=== PATIENT | male | born 1960 | race Two or more races ===

== ENCOUNTER 2023-06-23 14:19 | Emergency (ER) | payer OTHER, SELFPAY ==
[2023-06-23 14:28] VITALS: BP 158/94; PULSE 88; TEMP 36.6; O2SAT 97; BMI 33.5
--- NOTE | 2023-06-23 14:40 | PC.NURSE ---
Pain to mid back radiating to left side. Denies injury. Has history of chronic back pain.
--- NOTE | 2023-06-23 14:59 | CT_ITS ---
The [address] [address] Patient Name: YARELIS BEY MRN: [id number] date: 1960 Sex: M Assigned Patient Location: ER Current Patient Location: ER Accession/Order Number: [id number] Exam Date: 06/23/2023 15:57 Report Date: 06/23/2023 16:56 At the request of: JAYLON MCCURDY Procedure: CT angio chest CT angio chest HISTORY: chest pain/ back pain. r/o dissection TECHNIQUE: CTA chest with intravenous contrast attention to the thoracic aorta. Sagittal, coronal and slab 3D MIP coronal reconstructed images were also created for further evaluation and interpretation. One of the following dose optimization techniques was utilized in the performance of this exam: Automated exposure control; adjustment of the mA and/or kV according to the patient's size; or use of an iterative reconstruction technique. Specific details can be referenced in the facility's radiology CT exam operational policy. COMPARISON: None. FINDINGS: Heart/vessels: No evidence of aortic dissection or pulmonary. Coronary artery calcifications. Mediastinum: Negative. Lymph nodes: Negative. Lungs/pleura: Bibasilar subsegmental atelectasis. Visualized upper abdomen: Negative. Bones/soft tissues: Negative. CT/CT angio chest IMPRESSION: 1. No evidence of aortic dissection. 2. Bibasilar atelectasis. Electronically authenticated by: LONDON HANKS Date: 06/23/2023 16:56
--- NOTE | 2023-06-23 14:59 | ECG_ITS ---
[facility] Test Date: 2023-06-23 Pat Name: YARELIS BEY Department: Room: - Gender: Male Supplemental Manager: : 1960 Requested By: Order Number: [id number] Reading MD: DAVE EDDY Measurements Intervals [place] Rate: 90 P: 48 FL: 148 QRS: -11 QRSD: 88 T: 48 QT: 362 QTc: 410 Interpretive Statements 1100 Sinus rhythm 1470 with occasional supraventricular premature complexes 4068 Nonspecific [place] abnormality 9140 abnormal rhythm ECG No previous ECG available for comparison Electronically Signed On 06-24-2023 10:54:14 EDT by DAVE EDDY
[2023-06-23] MEDS: ONDANSETRON PF 4 MG/2 ML VIAL IV (15:23)
[2023-06-23] MEDS: KETOROLAC TROMETHAMINE 30 MG/ML VIAL 15 MG IVP (15:25)
[2023-06-23] MEDS: MORPHINE SULFATE 4 MG/ML VIAL IV (15:25)
[2023-06-23 15:28] LABS: Basophils Percent Auto 0.2 % (0.2-2.0); Hematocrit 47.3 % (42.0-54.0); Hemoglobin 16.1 g/dL (14.0-18.0); Immature Granulocytes Abs Auto 0.05 10^3/uL (0.00-0.03); Immature Granulocytes Pct Auto 0.3 % (0.0-0.5); Lymphocytes Absolute Auto 1.3 10^3/uL (1.2-3.8); Lymphocytes Percent Auto 7.9 % (20.5-60.0); Mean Corpuscular Volume 96.9 fL (80.0-94.0); Mean Platelet Volume 11.6 fL (9.5-13.5); Monocytes Absolute Auto 1.4 10^3/uL (0.3-0.8); Monocytes Percent Auto 8.5 % (1.7-12.0); Neutrophils Absolute Auto 13.8 10^3/uL (1.4-6.5); Neutrophils Percent Auto 83.1 % (43.0-75.0); Platelet Count 176 10^3/uL (150-450); Red Blood Count 4.88 10^6/uL (4.70-6.10); Red Cell Distribution Width 11.6 % (11.0-15.0); White Blood Count 16.5 10^3/uL (4.0-11.0)
[2023-06-23 15:31] VITALS: PULSE 86; O2SAT 95
[2023-06-23 15:42] LABS: INR 1.16; Prothrombin Time 12.1 sec (9.0-11.6)
[2023-06-23 15:48] LABS: Alanine Aminotransferase 38 U/L (16-63); Albumin Globulin Ratio 0.7; Albumin Level 3.5 g/dL (3.4-5.0); Alkaline Phosphatase 101 U/L (46-116); Anion Gap 14.3; Aspartate Amino Transferase 52 U/L (15-37); BUN Creatinine Ratio 11.5; Bilirubin Total 2.1 mg/dL (0.2-1.0); Calcium 9.3 mg/dL (8.5-10.1); Carbon Dioxide 28.5 mmol/L (21.0-32.0); Chloride 97 mmol/L (98-107); Estimated GFR (African America >60 (>=60); Estimated GFR (Non-African Ame >60 (>=60); Globulin 4.7 g/dL; Glucose 157 mg/dL (74-106); Potassium 3.8 mmol/L (3.5-5.1); Sodium 136 mmol/L (136-145); Total Protein 8.2 g/dL (6.4-8.2)
[2023-06-23 15:50] LABS: Troponin I High Sensitivity 10.1 pg/mL (4.0-76.1)
[2023-06-23 16:20] LABS: Bilirubin Urine MODERATE (NEGATIVE); Blood Urine TRACE-I (NEGATIVE); Clarity Urine CLEAR (CLEAR); Color Urine DK. ORANGE (YELLOW); Glucose Urine UA NEGATIVE (NEGATIVE); Ketones Urine TRACE mg/dL (NEGATIVE); Leukocyte Esterase Urine NEGATIVE (NEGATIVE); Nitrite Urine POSITIVE (NEGATIVE); Protein Urine 100 mg/dL (NEG/TRACE); Specific Gravity Urine 1.015 (1.005-1.025); pH Urine 6.5 (5.0-9.0)
[2023-06-23 16:21] LABS: Urine Microscopic Indicated YES
[2023-06-23 16:30] LABS: Bacteria Urine MODERATE #/HPF (NONE SEEN); Cast Seen? NONE SEEN #/LPF (NONE SEEN); Crystals Seen? None Seen #/HPF (None Seen); Mucus Urine SMALL (NONE SEEN); Squamous Epithelial Cell Urine NONE SEEN #/LPF (NONE/RARE); Urine Culture Indicated YES; WBC Urine 0-2 #/HPF (NONE SEEN)
--- NOTE | 2023-06-23 17:21 | ED_ITS ---
HPI HPI - General Adult General Chief complaint: Back Pain/Injury Stated complaint: BACK AND FLANK PAIN Time Seen by Provider: 06/23/23 14:40 Source: patient Mode of arrival: walk-in Limitations: no limitations History of Present Illness HPI narrative: 63-year-old male to the emergency department with chief complaint of back pain. Patient reports that he has a pain on his left side that is tearing Him apart . He reports it hurts around to the front on the left. He reports that it hurts down his back. He points to his left flank. He denies any fever, sweats, chills. Denies any hematuria, dysuria, urgency, frequency. He reports that he took his methadone today and it only mildly helped his pain. He reports that he has chronic back pain. He denies any numbness, weakness, tingling. He denies any difficulty walking. He denies any bladder incontinence or retention. Related Data Home Medications ?Medication ?Instructions ?Recorded ?Confirmed lisinopril 20 mg tablet 20 mg PO BID 06/23/23 06/23/23 methadone 10 mg tablet 10 mg PO QID PRN pain 06/23/23 06/23/23 tizanidine 4 mg tablet (Zanaflex) 4 mg PO TID PRN muscle spasticity 06/23/23 06/23/23 Previous Rx's ?Medication ?Instructions ?Recorded cephalexin 500 mg capsule 500 mg PO Q6H 7 days #28 caps 06/23/23 ondansetron 4 mg disintegrating 4 mg PO Q8H PRN nausea and 06/23/23 tablet vomiting 4 days #16 tabs Allergies Allergy/AdvReac Type Severity Reaction Status Date / Time gabapentin Allergy Anaphylaxis Verified 06/23/23 14:28 Opioid HPI Opioid Management Most Recent Opioid Data: Last Pain Scale 8 06/23/23 15:25 Last MAR Pain Assessment 06/23/23 15:25 Review of Systems ROS Status of ROS 10 or more systems reviewed and unremark able except as noted in history and below Exam Narrative Exam Narrative: VITALS: I have reviewed the triage vital signs. GENERAL: Uncomfortable adult male holding back and chest NEURO: Alert and oriented. Moves all extremities. Face is symmetric and expressive. EYES: PERRL. No scleral icterus or conjunctival injection. No discharge. HENT: Normocephalic, atraumatic. Hearing is grossly intact. Nares grossly patent and without discharge. Mucous membranes moist. NECK: No JVD. Patient moves neck without restriction. CARDIO: Rhythm regular. Normal rate. No murmur, rub, or gallop. Pulses equal bilaterally in the upper and lower extremity. No lower extremity edema. PULM: Lungs clear to auscultation in all guillory. No wheezes, rales, or rhonchi. No conversational dyspnea. No splinting, stridor, or accessory muscle use. GI/: Abdomen is soft and non-tender. Normoactive bowel sounds. EXTREMITIES: Symmetric muscle bulk. No joint swelling. No clubbing, cyanosis, or deformity. SKIN: Warm and dry. Normal turgor. No rash or lesions appreciated. PSYCH: Mood, affect, and interaction is appropriate to the setting. Constitutional Vital Signs, click to edit/add: Last Vital Signs Temp 97.9 F 06/23/23 14:28 Pulse 86 06/23/23 15:31 Resp 20 06/23/23 15:31 BP 158/94 H 06/23/23 14:28 Pulse Ox 95 06/23/23 15:31 O2 Del Method Room Air 06/23/23 15:31 Course Vital Signs Vital signs: Vital Signs Temperature 97.9 F 06/23/23 14:28 Pulse Rate 88 06/23/23 14:28 Respiratory Rate 20 06/23/23 14:28 Blood Pressure 158/94 H 06/23/23 14:28 Pulse Oximetry 97 06/23/23 14:28 Oxygen Delivery Method Room Air 06/23/23 14:28 Temperature 97.9 F 06/23/23 14:28 Pulse Rate 86 06/23/23 15:31 Respiratory Rate 20 06/23/23 15:31 Blood Pressure 158/94 H 06/23/23 14:28 Pulse Oximetry 95 06/23/23 15:31 Oxygen Delivery Method Room Air 06/23/23 15:31 Medical Decision Making MDM Narrative Medical decision making narrative: 63-year-old male to the emergency department with chief complaint of Tearing back pain. Vital stable, the patient is afebrile. Patient is a chronic back pain patient on methadone. He does appear to be in some significant discomfort. CT is ordered to rule out dissection. Pain medication ordered for symptoms. Basic labs and urine. Patient agrees with this plan. CTA without acute findings. Laboratory reviewed and unremarkable. Urinalysis is consistent with acute urinary tract infection. Patient reexamined. He reports his pain is controlled. He is up ambulating about with no discomfort. Keflex is prescribed. He may use his home. Pain medication regimen. Zofran for nausea or vomiting. Return options were discussed. All questions were answered. Patient was discharged home. Medical Records Medical records reviewed: Yes I reviewed the patient's medical records Lab Data Lab results reviewed: Yes I reviewed the patient's lab results Labs: Lab Results 06/23/23 06/23/23 Range/Units 15:10 16:06 WBC 16.5 H (4.0-11.0) 10^3/uL RBC 4.88 (4.70-6.10) 10^6/uL Hgb 16.1 (14.0-18.0) g/dL Hct 47.3 (42.0-54.0) % MCV 96.9 H (80.0-94.0) fL MCH 33.0 (25.9-34.0) pg MCHC 34.0 (29.9-35.2) g/dL RDW 11.6 (11.0-15.0) % Plt Count 176 (150-450) 10^3/uL MPV 11.6 (9.5-13.5) fL Neut % (Auto) 83.1 H (43.0-75.0) % Lymph % (Auto) 7.9 L (20.5-60.0) % [place] % (Auto) 8.5 (1.7-12.0) % Eos % (Auto) 0.0 L (0.9-7.0) % Baso % (Auto) 0.2 (0.2-2.0) % Neut # (Auto) 13.8 H (1.4-6.5) 10^3/uL Lymph # (Auto) 1.3 (1.2-3.8) 10^3/uL [place] # (Auto) 1.4 H (0.3-0.8) 10^3/uL Eos # (Auto) 0.0 (0.0-0.7) 10^3/uL Baso # (Auto) 0.0 (0.0-0.1) 10^3/uL Abs Immat Gran (auto) 0.05 H (0.00-0.03) 10^3/uL Imm/Tot Granulo (auto) 0.3 (0.0-0.5) % PT 12.1 H (9.0-11.6) sec INR 1.16 Sodium 136 (136-145) mmol/L Potassium 3.8 (3.5-5.1) mmol/L Chloride 97 L (98-107) mmol/L Carbon Dioxide 28.5 (21.0-32.0) mmol/L Anion Gap 14.3 BUN 10.0 (7.0-18.0) mg/dL Creatinine 0.87 (0.70-1.30) mg/dL Est GFR ( Amer) >60 (>=60) Est GFR (Non-Af Amer) >60 (>=60) BUN/Creatinine Ratio 11.5 Glucose 157 H (74-106) mg/dL Calcium 9.3 (8.5-10.1) mg/dL Total Bilirubin 2.1 H (0.2-1.0) mg/dL AST 52 H (15-37) U/L ALT 38 (16-63) U/L Alkaline Phosphatase 101 (46-116) U/L Troponin I High Sens 10.1 (4.0-76.1) pg/mL Total Protein 8.2 (6.4-8.2) g/dL Albumin 3.5 (3.4-5.0) g/dL Globulin 4.7 g/dL Albumin/Globulin Ratio 0.7 Lipase 22.0 (16.0-77.0) U/L Urine Color Dk. orange (YELLOW) Urine Clarity Clear (CLEAR) Urine pH 6.5 (5.0-9.0) Ur Specific [place] 1.015 (1.005-1.025) Urine Protein 100 A (NEG/TRACE) mg/dL Urine Glucose (UA) Negative (NEGATIVE) mg/dL Urine Ketones Trace A (NEGATIVE) mg/dL Urine Occult Blood Trace-i (NEGATIVE) Urine Nitrite Positive A (NEGATIVE) Urine Bilirubin Moderate A (NEGATIVE) Urine Urobilinogen 4.0 A (0.2-1.0) EU/dL Ur Leukocyte Esterase Negative (NEGATIVE) Urine RBC 2-5 A (0-2) #/HPF Urine WBC 0-2 A (NONE SEEN) #/HPF Ur Squamous Epith Cells None seen (NONE/RARE) #/LPF Urine Crystals None seen (None Seen) #/HPF Urine Bacteria Moderate A (NONE SEEN) #/HPF Urine Casts None seen (NONE SEEN) #/LPF Urine Mucus Small A (NONE SEEN) Ur Culture Indicated? Yes Imaging Data CT scan - chest: Radiologist's impression: ITS Impressions Chest CTA 06/23/23 14:59 IMPRESSION: 1. No evidence of aortic dissection. 2. Bibasilar atelectasis. Electronically authenticated by: LONDON HANKS Date: 06/23/2023 16:56 ECG Data Attestation: I personally reviewed and interpreted this ECG as follows: (90 NSR NO STEMI) Discharge Plan Discharge Stand Alone Forms: Portal Instructions Chief Complaint: Back Pain/Injury Clinical Impression: Pyelonephritis Patient Disposition: Home, Self-Care Condition: Good Mode of Transportation: Private Vehicle Prescriptions / Home Meds: New cephalexin 500 mg capsule 500 mg PO Q6H 7 Days Qty: 28 0RF ondansetron 4 mg tablet,disintegrating 4 mg PO Q8H PRN (Reason: nausea and vomiting) 4 Days Qty: 16 0RF No Action methadone 10 mg tablet 10 mg PO QID PRN (Reason: pain) tizanidine [Zanaflex] 4 mg tablet 4 mg PO TID PRN (Reason: muscle spasticity) lisinopril 20 mg tablet 20 mg PO BID Print Language: Georgian Instructions: Kidney Infection (ED) Additional Instructions: Follow-up with your doctor in the next 3-5 days. Return to the Emergency Department with worsening pain, fevers, or inability to tolerate oral intake. Take antibiotic as prescribed for complete course. Referrals: Physician,Non-Staff, MD [Primary Care Provider] - 1 week
[2023-06-23] MEDS: CEFTRIAXONE 1,000 MG in 0.9 % SODIUM CHLORIDE 50 ML 100 MG IV (17:22)
[2023-06-23 17:44] VITALS: BP 166/92; PULSE 68; O2SAT 96
== END 2023-06-23 17:49 | disposition home or self-care (01) ==
PROVIDERS: Emergency Provider Student in an Organized Health Care Education/Training Program
DX: N12 Tubulo-interstitial nephritis, not specified as acute or chronic (principal); Z79.899 Other long term (current) drug therapy
CPT/HCPCS: 36415; 71275; 80053; 81001; 83690; 84484; 85025; 85610; 87086; 87150; 87186; 93005; 96365; 96375; 99285; Q9967